=== PATIENT | female | born 1990 ===

== ENCOUNTER 2017-11-18 08:51 | Outpatient (RCR) | payer SELFPAY ==
--- NOTE | 2017-11-19 10:25 | General Progress Note ---
Assessment/Plan Assessment/Plan For HBO2 cont'd Subjective Date patient seen: Nov 18, 2017 ROS Limited/Unobtainable: No Subjective pt doing well and comfortable Objective Objective nasal swelling cont'd tape in place as instructed CIPRIANO TRINH M.D. Nov 19, 2017 10:25
--- NOTE | 2017-11-19 17:15 | Consultation ---
DATE OF CONSULTATION: 11/18/2017 HYPERBARIC OXYGEN CONSULTATION REASON FOR EVALUATION: Hyperbaric oxygen therapy. HISTORY: A pleasant young 27-year-old female, presents for hyperbaric oxygen therapy prophylactically for breast lift and rhinoplasty. The patient is otherwise stable. Wounds are intact. No other significant complaints. PAST MEDICAL HISTORY: Negative. MEDICATIONS: Negative. ALLERGIES: None known. SOCIAL HISTORY: Otherwise independent. Nonsmoker and nondrinker. PHYSICAL EXAMINATION: GENERAL: A well-developed female and comfortable. VITAL SIGNS: Blood pressure 97/64, pulse 70, and temperature 97.7. HEENT: Negative. Tympanic membranes are clear. Nasopharynx clear. NECK: Supple. LUNGS: Clear. CARDIAC: Normal S1, S2. Regular rate and rhythm. IMPRESSION: Status post breast lift and rhinoplasty. RECOMMENDATION: Proceed with hyperbaric oxygen therapy x2 sessions as per the request of the surgeon at 90-minute intervals and 2 atmospheres. The patient is aware of the risks and benefits and would like to proceed. Manuel Lopez M.D. DR: PARDEEP JOB#: [id number] CC: PAUL
--- NOTE | 2017-11-22 15:24 | General Progress Note ---
Assessment/Plan Assessment/Plan For HBO2 cont'd Subjective Date patient seen: Nov 18, 2017 ROS Limited/Unobtainable: No Subjective pt doing well and comfortable Objective Objective nasal swelling, tape in place loosened at tip but replaced CIPRIANO TRINH M.D. Nov 22, 2017 15:24
--- NOTE | 2017-11-23 21:47 | Consultation ---
History of Present Illness General Date patient seen: Nov 19, 2017 Chief Complaint: nasal swelling Patient History Healthcare decision maker Resuscitation status Advanced Directive on File Physical Exam Physical Exam Narrative swelling nose Assessment/Plan Assessment/Plan fo hbo2 today CIPRIANO TRINH M.D. Nov 23, 2017 21:47
--- NOTE | 2017-11-23 21:48 | Consultation ---
History of Present Illness General Date patient seen: Nov 18, 2017 Chief Complaint: nasal swelling Patient History Healthcare decision maker Resuscitation status Advanced Directive on File Assessment/Plan Assessment/Plan fo hbo2 today CIPRIANO TRINH M.D. Nov 23, 2017 21:48
== END 2017-11-26 | disposition home or self-care (01) ==
LOC: WCC 08:51
DX: R22.0 Localized swelling, mass and lump, head (principal); Z98.82 Breast implant status; Z98.890 Other specified postprocedural states
CPT/HCPCS: G0277 ×2